=== PATIENT | female | born 1995 | race Asian ===

== ENCOUNTER 2017-02-13 22:13 | Emergency (ER) | payer BC ==
[~2017-02-13] VITALS: Ht 160 cm; Wt 81.8 kg
[2017-02-14] MEDS ORDERED: ACETAMINOPHEN 325 MG TABLET PO ONE (02:00)
[2017-02-14] MEDS ORDERED: AMOX TR/POT CLAV 500 MG/125 MG TABLET PO ONE (02:00)
[2017-02-14 02:05] VITALS: BP 129/74
== END 2017-02-14 02:08 | disposition home or self-care (01) ==
LOC: EMS 22:15
DX: O9A.211 Injury, poisoning and certain other consequences of external causes complicating pregnancy, first trimester (principal); S61.052A Open bite of left thumb without damage to nail, initial encounter; Z3A.01 Less than 8 weeks gestation of pregnancy; Z88.5 Allergy status to narcotic agent; Y04.1XXA Assault by human bite, initial encounter; Y93.89 Activity, other specified; Y92.89 Other specified places as the place of occurrence of the external cause; Y99.8 Other external cause status
CPT/HCPCS: 81025; 99285